=== PATIENT | male | born 1960 | race Caucasian/White ===

== ENCOUNTER → 2017-03-16 | Outpatient (CLI) | payer OTHER, BC ==
--- NOTE | 2017-03-16 14:00 | DIAGNOSTIC IMAGING REPORT ---
L FOOT MIN 3 VIEWS ROUTINE CLINICAL HISTORY: L FOOT trauma. Pain. COMPARISON: None. DISCUSSION: Nondisplaced cortical fracture base fifth metatarsal laterally. No evidence of dislocation. All remaining osseous structures are unremarkable. Localized soft tissue edema. Subtalar joint is intact. There is no evidence for soft tissue swelling. IMPRESSION: Nondisplaced cortical fracture lateral aspect base fifth metatarsal. Localized soft tissue edema. The above report was generated using voice recognition software. It may contain grammatical, syntax or spelling errors. Electronically signed by: John Smith M.D. 03/16/2017 1:58 PM Dictated Date/Time: 03/16/2017 1:57 PM
== END | disposition home or self-care (01) ==
LOC: C.RAD1850 13:35
PROVIDERS: ATTEND Nurse Practitioner Family
DX: S92.355A Nondisplaced fracture of fifth metatarsal bone, left foot, initial encounter for closed fracture (principal); W19.XXXA Unspecified fall, initial encounter; Y99.0 Civilian activity done for income or pay